=== PATIENT | female | born 2000 | race Caucasian/White ===

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

== ENCOUNTER 2019-01-08 13:51 | Emergency (ER) | payer OTHER ==
[2019-01-08] MEDS: LIDOCAINE 1% (MPF) 5 ML VIAL INJ (14:56)
== END 2019-01-08 16:11 | disposition home or self-care (01) ==
LOC: FTE 13:51
DX: L60.0 Ingrowing nail (principal)
CPT/HCPCS: 11765; 99283-25